=== PATIENT | female | born 1980 | race Two or more races ===

== ENCOUNTER 2024-12-07 06:10 | Inpatient (IN) | payer BC ==
[2024-12-07] MEDS: CITRIC ACID/SODIUM CITRATE 30 ML UNIT-DOSE CUP PO ONE (06:30)
[2024-12-07] MEDS: ELECTROLYTE-148 SOLN 1,000 ML IV SCH (07:00)
[2024-12-07 07:16] VITALS: BMI 30.2
[2024-12-07] MEDS ORDERED: IBUPROFEN 600 MG TABLET (FP) PO ONE (08:24)
[2024-12-07] MEDS ORDERED: morphine SULFATE/PF 1 MG/2 ML (2cc Syringe - QUVA) ONE (09:12)
[2024-12-07] MEDS ORDERED: FENTANYL CITRATE/PF 50 MCG/ML VIAL ONE (09:12)
[2024-12-07] MEDS ORDERED: ONDANSETRON 4 MG/2 ML VIAL ONE (09:19)
[2024-12-07] MEDS ORDERED: DEXAMETHASONE SOD PHOSPHATE 4 MG/1 ML VIAL ONE (09:19)
[2024-12-07] MEDS ORDERED: ceFAZolin SODIUM 1 GM VIAL ONE (09:19)
[2024-12-07] MEDS ORDERED: METOCLOPRAMIDE HCL INJECTION 10 MG/2 ML VIAL ONE (09:19)
[2024-12-07] MEDS ORDERED: KETOROLAC TROMETHAMINE 30 MG/1 ML VIAL ONE (11:20)
[2024-12-07 11:32] LABS: CORD BASE EXCESS 0.9 mmol/L (0-2); CORD HCO3 28.8 mmHg (20-29); CORD PCO2 60.3 mmHg (30-78); CORD pH 7.297 (7.14-7.44)
[2024-12-07 11:34] LABS: CORD BASE EXCESS -0.3 mmol/L (0-2); CORD HCO3 27.3 mmHg (20-29); CORD PCO2 57.4 mmHg (30-78); CORD pH 7.295 (7.14-7.44)
[2024-12-07] MEDS ORDERED: WITCH HAZEL 50% (TUCKS) 40 PAD/JAR PAD TP PRN (12:10)
[2024-12-07] MEDS ORDERED: BENZOCAINE 20% 57 GM BOTTLE TP PRN (12:10)
[2024-12-07] MEDS ORDERED: BENZOCAINE 28 GM HEMORRHOIDAL OINTMENT TP PRN (12:10)
[2024-12-07] MEDS ORDERED: METHYLERGONOVINE MALEATE 0.2 MG/1 ML AMP IM PRN (12:10)
[2024-12-07] MEDS: OXYTOCIN 20 UNITS in 0.9% NS 20 UNIT/1,000 ML INFUS.BAG IV SCH (12:30)
[2024-12-07] MEDS ORDERED: OXYTOCIN 20 UNITS in 0.9% NS 20 UNIT/1,000 ML INFUS.BAG IV ONE (13:27)
[2024-12-07] MEDS: IBUPROFEN 800 MG/8 ML IJ IVPB PRN (14:34)
[2024-12-07] MEDS: ACETAMINOPHEN 1000 MG/100 ML BAG IVPB PRN (22:20)
[2024-12-07] MEDS: SIMETHICONE 80 MG TAB.CHEW (FP) PO PRN (22:20)
[2024-12-08] MEDS ORDERED: oxyCODONE HCL 5 MG TABLET PO PRN ×2 (00:10)
[2024-12-08 08:05] LABS: ABSOLUTE IMMATURE GRANULOCYTES 0.13 x10^3/uL (0.0-0.031); BASOPHILS # 0.03 x10^3/uL (0.01-0.08); EOSINOPHIL % 0.2 % (0.7-5.8); EOSINOPHILS # 0.02 x10^3/uL (0.04-0.36); HEMATOCRIT 34.8 % (34.1-44.9); HEMOGLOBIN 11.2 g/dL (11.2-15.7); MCHC 32.2 g/dl (32.2-35.5); MEAN CELL VOLUME 90.2 fl (79.4-94.8); MEAN PLT VOLUME 11.7 fl (9.4-12.3); MONOCYTE # 0.86 x10^3/uL (0.24-0.86); MONOCYTE % 6.7 % (4.7-12.5); PLATELET COUNT 154 x10^3/uL (182-369); RDW 13.4 % (12.2-17.1)
[2024-12-08] MEDS: IBUPROFEN 600 MG TABLET (FP) PO PRN (08:59)
[2024-12-08] MEDS: ENOXAPARIN NA (PORCINE) 40 MG/0.4 ML DISP.SYRIN SQ SCH (08:59)
[2024-12-08] MEDS: PRENATAL VITAMINS W/ FOLIC ACID TABLET (FP) PO SCH (08:59)
[2024-12-08] MEDS ORDERED: BISACODYL 10 MG SUPP.RECT RC PRN (12:10)
[2024-12-08] MEDS: SENNOSIDES/DOCUSATE COMBO (SENNA PLUS) TABLET (UD) PO PRN (21:10)
[2024-12-09] MEDS: ACETAMINOPHEN 325 MG TABLET (FP) PO PRN (09:08)
[2024-12-09 23:29] VITALS: RESP 18
[2024-12-10 07:09] LABS: BASOPHILS # 0.05 x10^3/uL (0.01-0.08); EOSINOPHIL % 3.5 % (0.7-5.8); EOSINOPHILS # 0.24 x10^3/uL (0.04-0.36); HEMATOCRIT 33.4 % (34.1-44.9); MCHC 32.9 g/dl (32.2-35.5); MEAN PLT VOLUME 10.8 fl (9.4-12.3); MONOCYTE # 0.59 x10^3/uL (0.24-0.86); MONOCYTE % 8.6 % (4.7-12.5); PLATELET COUNT 156 x10^3/uL (182-369); RDW 13.3 % (12.2-17.1)
[2024-12-10 08:26] VITALS: BP 123/81; PULSE 75; TEMP 98.5
== END 2024-12-10 12:57 | disposition home or self-care (01) | DRG 788 ==
LOC: JERBED 06:10 → JLDR 06:43 → J3W 14:00
PROVIDERS: ADMIT Obstetrics & Gynecology; ATTEND Obstetrics & Gynecology
PROC: 10D00Z1 Extraction of Products of Conception, Low, Open Approach (ICD-10-PCS; principal; 2024-12-07)
DX: O34.13 Maternal care for benign tumor of corpus uteri, third trimester (principal); D25.9 Leiomyoma of uterus, unspecified; Z3A.37 37 weeks gestation of pregnancy; Z37.0 Single live birth
CPT/HCPCS: 36415; 36600; 82803; 85025; 86850; 86900; 86901; 88307-TC; 94010